=== PATIENT | female | born 1965 | race Caucasian/White ===

== ENCOUNTER 2024-02-14 10:42 | Inpatient (IN) | payer BC ==
[~2024-02-14] VITALS: Ht 170.2 cm; Wt 68.0 kg
[2024-02-14 11:37] LABS: POTASSIUM 3.6 mEq/L (3.5-5.1)
[2024-02-14 11:38] LABS: CALCIUM 8.7 mg/dL (8.7-10.4)
[2024-02-14 11:43] LABS: CREATININE 1.4 mg/dL (0.6-1.0); HEMOGLOBIN. 9.2 g/dL (12.0-16.0); MEAN CORPUSCULAR HEMOGLOBIN 29.2 pg (28.0-32.0); MEAN CORPUSCULAR HGB CONC 32.8 g/dL (31.0-37.0); MEAN CORPUSCULAR VOLUME 89.1 fL (81.0-99.0); MEAN PLATELET VOLUME 7.5 fl (7.4-10.4); PLATELET 192 x1000/uL (130-400); RED BLOOD CELL COUNT 3.14 mill/uL (4.2-5.4); RED CELL DISTRIBUTION WIDTH 12.9 % (11.6-14.6); WHITE BLOOD COUNT 8.4 x1000/uL (4.5-11.0)
[2024-02-14 11:46] LABS: DIFFERENTIAL COMMENT 1; INR 1.1
[2024-02-14] MEDS: INSULIN REGULAR (HUMULIN R) 1000UNITS/10ML VIAL IV ONE (12:03)
[2024-02-14] MEDS: SODIUM CHLORIDE 0.9% 2,000 ML IV ONE (12:12)
[2024-02-14 13:01] LABS: PLATELET ESTIMATE NORMAL; TOXIC VACUOLATION 3+
[2024-02-14 13:02] LABS: ANISOCYTOSIS 1+
[2024-02-14] MEDS: INSULIN REGULAR (HUMULIN R) 1000UNITS/10ML VIAL IV NR (14:06)
[2024-02-14] MEDS: SODIUM CHLORIDE 0.9% 1,000 ML IV ONE (14:07)
[2024-02-14] MEDS: GABAPENTIN 100MG CAPSULE PO NR (14:07)
[2024-02-14 14:10] LABS: CLARITY URINE TURBID (CLEAR); COLOR URINE YELLOW (YELLOW); GLUCOSE URINE 3+ (NEGATIVE); KETONES URINE NEGATIVE (NEGATIVE); LEUKOCYTE ESTERASE URINE 2+ (NEGATIVE); NITRITE URINE POSITIVE (NEGATIVE); OCCULT BLOOD URINE 3+ (NEGATIVE); PROTEIN URINE NEGATIVE (NEGATIVE); SPECIFIC GRAVITY URINE 1.023 (1.005-1.030)
[2024-02-14 14:38] LABS: BACTERIA URINE 4+; SQUAMOUS EPITHELIAL CELL URINE 1+ /lpf (RARE/1+)
[2024-02-14 14:39] LABS: WBC URINE 50-100 /hpf (0-2)
[2024-02-14] MEDS: LEVOFLOXACIN 500MG PREMIX 100 ML IV ONE (14:53)
[2024-02-14] MEDS ORDERED: DOPAMINE 800MG PREMIX (DOUBLE) 250 ML IV ONE (15:15)
[2024-02-14 15:32] LABS: LACTIC ACID 5.9 mmol/L (0.4-2.0)
[2024-02-14] MEDS: DOPAMINE 800MG PREMIX (DOUBLE) 250 ML IV ONE (15:55)
[2024-02-14] MEDS: PIPERACILLIN/TAZO 3.375G/50ML 50 ML IV SCH (22:04)
[2024-02-14] MEDS ORDERED: NALOXONE HCL 0.4MG/ML VIAL IV PRN (22:30)
[2024-02-14] MEDS: ACETAMINOPHEN 325MG TABLET PO PRN (22:42)
[2024-02-14] MEDS: NOREPINEPHRINE 8MG/250ML PMX 250 ML IV PRN (23:32)
[2024-02-14] MEDS: DOPAMINE 400MG/250ML PREMIX 250 ML IV SCH (23:36)
[2024-02-15] MEDS: SODIUM CHLORIDE 0.9% 1,000 ML IV SCH (02:39)
[2024-02-15] MEDS ORDERED: BLOOD SUGAR DIAGNOSTIC STRIP TEST SCH (09:00)
[2024-02-15] MEDS ORDERED: PHENYLEPHRINE 50MG/250ML PMX 250 ML IV PRN (09:00)
[2024-02-15] MEDS: BLOOD SUGAR DIAGNOSTIC STRIP TEST SCH (09:01)
[2024-02-15] MEDS: INSULIN LISPRO 100 UNITS/ML SUBCUT SCH (09:04)
[2024-02-15] MEDS: CEFTRIAXONE 1GM/50ML 50 ML IV SCH (10:23)
[2024-02-15] MEDS: SODIUM CHLORIDE 0.9% 500 ML IV ONE (10:23)
[2024-02-15] MEDS: MIDODRINE HCL 5MG TABLET PO SCH (10:30)
[2024-02-15] MEDS: INSULIN GLARGINE 100 UNITS/ML SUBCUT SCH (10:31)
[2024-02-15] MEDS: HYDROCODONE/ACETAMINOPHEN 5/325MG TABLET PO PRN (17:20)
[2024-02-15 22:07] LABS: CHLORIDE 113 mEq/L (98-107); POTASSIUM 3.3 mEq/L (3.5-5.1); SODIUM 143 mEq/L (136-145)
[2024-02-15 22:08] LABS: CARBON DIOXIDE 17 mEq/L (21-32)
[2024-02-15 22:13] LABS: CREATININE 0.8 mg/dL (0.6-1.0); GLUCOSE 200 mg/dL (70-105); UREA NITROGEN BLOOD 20 mg/dL (9-23)
[2024-02-15] MEDS ORDERED: VASOPRESSIN 20 UNIT in SODIUM CHLORIDE 0.9% 99 ML IV PRN (22:30)
[2024-02-15] MEDS: PHENYLEPHRINE 50MG/250ML PMX 250 ML IV PRN (23:35)
[2024-02-16] VITALS (82 sets, daily range): BP systolic 75–141; BP diastolic 38–80; PULSE 68–91; RESP 9–27; TEMP 36.78072–37.16964; O2SAT 93–100
[2024-02-16] MEDS ORDERED: METF-414 PO (03:15)
[2024-02-16] MEDS ORDERED: DEXTROSE 50% WATER 50ML SYRINGE IV PRN (03:30)
[2024-02-16] MEDS: PIPERACILLIN/TAZO 3.375G/100ML 100 ML IV SCH (05:26)
[2024-02-16] MEDS: BLOOD SUGAR DIAGNOSTIC STRIP TEST SCH (05:26)
[2024-02-16] MEDS: INSULIN LISPRO 100 UNITS/ML SUBCUT SCH (05:27)
[2024-02-16 05:35] LABS: HEPATITIS B SURFACE ANTIGEN NEGATIVE (Negative)
[2024-02-16 05:56] LABS: HEPATITIS C AB NON REACTIVE (Neg) (Negative)
[2024-02-16 06:24] LABS: CARBON DIOXIDE 21 mEq/L (21-32); CHLORIDE 114 mEq/L (98-107); POTASSIUM 3.2 mEq/L (3.5-5.1); SODIUM 143 mEq/L (136-145)
[2024-02-16 06:25] LABS: CALCIUM 8.3 mg/dL (8.7-10.4)
[2024-02-16 06:29] LABS: CREATININE 0.7 mg/dL (0.6-1.0); GLUCOSE 150 mg/dL (70-105)
[2024-02-16 06:30] LABS: TRIGLYCERIDE 124 mg/dL (0-150); UREA NITROGEN BLOOD 23 mg/dL (9-23)
[2024-02-16 06:31] LABS: LDL CHOLESTEROL 44 mg/dL (5-100)
[2024-02-16 06:32] LABS: CHOLESTEROL 104 mg/dL (<200); HDL CHOLESTEROL < 20 mg/dL (>65)
[2024-02-16 06:33] LABS: HEMATOCRIT. 31.5 % (36.0-48.0); HEMOGLOBIN. 10.3 g/dL (12.0-16.0); MEAN CORPUSCULAR HEMOGLOBIN 28.5 pg (28.0-32.0); MEAN CORPUSCULAR HGB CONC 32.8 g/dL (31.0-37.0); MEAN CORPUSCULAR VOLUME 86.8 fL (81.0-99.0); MEAN PLATELET VOLUME 7.9 fl (7.4-10.4); PLATELET 172 x1000/uL (130-400); RED BLOOD CELL COUNT 3.63 mill/uL (4.2-5.4); RED CELL DISTRIBUTION WIDTH 13.4 % (11.6-14.6); WHITE BLOOD COUNT 21.9 x1000/uL (4.5-11.0)
[2024-02-16 07:08] LABS: DIFFERENTIAL COMMENT 1
[2024-02-16 09:27] LABS: PLATELET ESTIMATE NORMAL
[2024-02-16] MEDS: POTASSIUM CHLORIDE 20MEQ TABLET SR PO NR (12:28)
[2024-02-16] MEDS: ONDANSETRON HCL 4MG/2ML INJ IV PRN (18:38)
[2024-02-16] MEDS: CEFTRIAXONE 2GM/50ML 50 ML IV SCH (20:26)
[2024-02-17] VITALS (75 sets, daily range): BP systolic 63–169; BP diastolic 40–122; PULSE 60–88; RESP 0–29; TEMP 36.89184–37.2252; O2SAT 92–100
[2024-02-17] MEDS: DEXTROSE 50% WATER 50ML SYRINGE IV PRN (06:13)
[2024-02-17 06:16] LABS: BASOPHILS % 0.5 % (0.0-2.0); EOSINOPHILS % 1.5 % (0.0-5.0); HEMATOCRIT. 27.5 % (36.0-48.0); HEMOGLOBIN. 9.3 g/dL (12.0-16.0); LYMPHOCYTES % 14.3 % (20.0-50.0); MEAN CORPUSCULAR HEMOGLOBIN 29.4 pg (28.0-32.0); MEAN CORPUSCULAR HGB CONC 33.6 g/dL (31.0-37.0); MEAN CORPUSCULAR VOLUME 87.3 fL (81.0-99.0); MEAN PLATELET VOLUME 8.2 fl (7.4-10.4); MONOCYTES % 2.9 % (2.0-8.0); NEUTROPHILS % 80.8 % (40.0-76.0); PLATELET 149 x1000/uL (130-400); RED BLOOD CELL COUNT 3.15 mill/uL (4.2-5.4); RED CELL DISTRIBUTION WIDTH 13.7 % (11.6-14.6); WHITE BLOOD COUNT 10.9 x1000/uL (4.5-11.0)
[2024-02-17 06:19] LABS: CARBON DIOXIDE 21 mEq/L (21-32); CHLORIDE 116 mEq/L (98-107); POTASSIUM 3.7 mEq/L (3.5-5.1); SODIUM 144 mEq/L (136-145)
[2024-02-17 06:24] LABS: CREATININE 0.6 mg/dL (0.6-1.0); GLUCOSE 58 mg/dL (70-105)
[2024-02-17 06:25] LABS: UREA NITROGEN BLOOD 27 mg/dL (9-23)
[2024-02-17 06:26] LABS: ALANINE AMINOTRANSFERASE 31 IU/L (10-49); ALBUMIN 2.5 g/dL (3.2-4.8); ASPARTATE AMINOTRANSFERASE 29 IU/L (<34)
[2024-02-17 06:27] LABS: BILIRUBIN TOTAL 0.7 mg/dL (0.1-1.0); PROTEIN TOTAL 4.8 g/dL (6.0-8.3)
[2024-02-17] MEDS: MIDODRINE HCL 5MG TABLET PO SCH (16:50)
[2024-02-17] MEDS: DEXT 5%/0.45% NACL 1000ML 1,000 ML IV SCH (22:39)
[2024-02-18] VITALS (43 sets, daily range): BP systolic 88–156; BP diastolic 34–129; PULSE 53–94; RESP 9–27; TEMP 36.22512–37.2252; O2SAT 93–100
[2024-02-18 07:22] LABS: HEMATOCRIT 31.4 % (36.0-48.0); HEMOGLOBIN 10.4 g/dL (12.0-16.0); MEAN CORPUSCULAR HEMOGLOBIN 28.9 pg (28.0-32.0); MEAN CORPUSCULAR HGB CONC 33.3 g/dL (31.0-37.0); MEAN CORPUSCULAR VOLUME 86.9 fL (81.0-99.0); PLATELET 168 x1000/uL (130-400); RED BLOOD CELL COUNT 3.61 mill/uL (4.2-5.4); RED CELL DISTRIBUTION WIDTH 13.9 % (11.6-14.6); WHITE BLOOD COUNT 6.4 x1000/uL (4.5-11.0)
[2024-02-18 07:38] LABS: CHLORIDE 112 mEq/L (98-107); POTASSIUM 3.5 mEq/L (3.5-5.1); SODIUM 141 mEq/L (136-145)
[2024-02-18 07:39] LABS: CALCIUM 8.4 mg/dL (8.7-10.4); CARBON DIOXIDE 21 mEq/L (21-32)
[2024-02-18 07:44] LABS: CREATININE 0.6 mg/dL (0.6-1.0); GLUCOSE 154 mg/dL (70-105); UREA NITROGEN BLOOD 16 mg/dL (9-23)
[2024-02-19] VITALS: BP 103/39; PULSE 86; RESP 18; TEMP 36.114; O2SAT 96
[2024-02-19 08:00] VITALS: BP 112/50; PULSE 75; RESP 19; TEMP 36.55848; O2SAT 96
[2024-02-19] MEDS ORDERED: LIDOCAINE HCL 1% 10 MG/ML 10ML VIAL ONE (08:07)
[2024-02-19 12:00] VITALS: BP 125/58; PULSE 91; RESP 18; TEMP 36.50292; O2SAT 96
[2024-02-19 16:00] VITALS: BP 137/72; PULSE 92; RESP 18; TEMP 36.44736; O2SAT 97
[2024-02-19 20:00] VITALS: BP 127/46; PULSE 85; RESP 18; TEMP 37.7808; O2SAT 97
[2024-02-20] VITALS: BP 130/52; PULSE 89; RESP 18; TEMP 37.16964; O2SAT 98
[2024-02-20 04:00] VITALS: BP 128/48; PULSE 94; RESP 18; TEMP 36.50292; O2SAT 97
[2024-02-20 08:00] VITALS: BP 131/52; PULSE 73; RESP 17; TEMP 36.3918; O2SAT 95
[2024-02-20] MEDS ORDERED: INSU100I28 SQ (10:18)
[2024-02-20 12:00] VITALS: BP 149/55; PULSE 81; RESP 18; TEMP 36.89184; O2SAT 100
[2024-02-20 16:00] VITALS: BP 141/58; PULSE 88; RESP 17; TEMP 36.72516; O2SAT 99
[2024-02-20 20:00] VITALS: BP 134/57; PULSE 87; RESP 19; TEMP 36.22512; O2SAT 97
[2024-02-20] MEDS: INSULIN GLARGINE 100 UNITS/ML SUBCUT SCH (21:59)
[2024-02-21] VITALS: BP 120/51; PULSE 80; RESP 19; TEMP 37.11408; O2SAT 99
[2024-02-21 04:00] VITALS: BP 95/38; PULSE 79; RESP 19; TEMP 36.78072; O2SAT 98
[2024-02-21 08:00] VITALS: BP 149/65; PULSE 80; RESP 18; TEMP 36.114; O2SAT 97
[2024-02-21 12:00] VITALS: BP 139/63; PULSE 82; RESP 17; TEMP 36.72516; O2SAT 100
[2024-02-21 16:00] VITALS: BP 140/57; PULSE 85; RESP 18; TEMP 37.00296; O2SAT 100
[2024-02-21 20:00] VITALS: BP 153/65; PULSE 84; RESP 18; TEMP 37.00296; O2SAT 100
[2024-02-22 04:00] VITALS: BP 143/69; PULSE 74; RESP 18; TEMP 36.83628; O2SAT 100
[2024-02-22 08:00] VITALS: BP 102/54; PULSE 86; RESP 18; TEMP 36.28068; O2SAT 97
[2024-02-22 12:00] VITALS: BP 108/60; PULSE 82; RESP 18; TEMP 36.16956; O2SAT 98
[2024-02-22 14:29] VITALS: BP 102/54; PULSE 82; TEMP 97.7; O2SAT 99
== END 2024-02-22 15:45 | disposition home health service (06) | DRG 871 ==
LOC: ER 10:42 → EDBEDREQ 15:11 → EDBEDREQTM 15:11 → EDBEDREQSVC 15:11 → MICUSO 02-16 03:02 → 6EST 02-18 11:14
PROVIDERS: ADMIT Internal Medicine; ATTEND Internal Medicine
PROC: 02HV33Z Insertion of Infusion Device into Superior Vena Cava, Percutaneous Approach (ICD-10-PCS; principal; 2024-02-19)
PROC: B548ZZA Ultrasonography of Superior Vena Cava, Guidance (ICD-10-PCS; 2024-02-19)
PROC: B5181ZA Fluoroscopy of Superior Vena Cava using Low Osmolar Contrast, Guidance (ICD-10-PCS; 2024-02-19)
DX: A41.51 Sepsis due to Escherichia coli [E. coli] (principal); N17.0 Acute kidney failure with tubular necrosis; R65.21 Severe sepsis with septic shock; N39.0 Urinary tract infection, site not specified; E87.20 Acidosis, unspecified; E11.65 Type 2 diabetes mellitus with hyperglycemia; E87.6 Hypokalemia; D64.9 Anemia, unspecified; Y99.0 Civilian activity done for income or pay; Z79.84 Long term (current) use of oral hypoglycemic drugs
CPT/HCPCS: 36415; 36573; 80048; 80053; 80061; 81003; 82962; 83036; 83605; 83930; 84145; 85025; 85027; 86705; 87077; 87186; 87340; 93005; 99285; C1725; J0696; J1265; J1815; J1956; J2003; J2405; J2543; J3490; J7030

== ENCOUNTER 2024-03-02 13:18 | Emergency (ER) | payer BC ==
[~2024-03-02] VITALS: Ht 162.6 cm; Wt 59.0 kg
[~2024-03-02 13:18] MED LIST: INSU100I28 SQ; METF-414 PO
[2024-03-02 13:28] VITALS: BP 147/69; TEMP 98.6; O2SAT 100
[2024-03-02 13:31] VITALS: PULSE 91; RESP 18; O2SAT 97
== END 2024-03-02 22:53 | disposition home or self-care (01) ==
LOC: ER 13:18
DX: Z48.03 Encounter for change or removal of drains (principal); E11.9 Type 2 diabetes mellitus without complications; Z79.4 Long term (current) use of insulin; Z79.84 Long term (current) use of oral hypoglycemic drugs
CPT/HCPCS: 99281